=== PATIENT | male | born 1975 | race Caucasian/White ===

== ENCOUNTER 2019-10-13 07:34 | Outpatient (CLI) | payer OTHER ==
[2019-10-13 15:48] LABS: #Basophils 0.1 thou/uL (0.0-0.2); #Eosinphils 0.4 thou/uL (0.0-0.7); #Lymphocytes 1.8 thou/uL (1.20-3.40); #Monocytes 0.7 thou/uL (0.11-0.59); #Neutrophils 5.8 thou/uL (1.40-6.50); %Eosinophils 4.8 % (0.0-10.0); %Lymphocytes 20.6 % (21.0-51.0); %Monocytes 8.1 % (0.0-10.0); %Neutrophils 65.5 % (42.0-75.0); Hemoglobin 15.7 g/dL (14.0-18.0); Mean Corpuscular HGB CONC 34.1 g/dL (32.0-36.0); Mean Corpuscular Hemoglobin 34.3 pg (27.0-31.0); Mean Platelet Volume 8.1 fL (7.4-10.4); Platelet Count 232 thou/uL (130-400); RBC Distribution Width 12.1 % (11.5-14.5); Red Blood Cell (RBC) Count 4.57 mill/uL (4.70-6.10); White Blood Cell (WBC) Count 8.8 thou/uL (4.8-10.8)
[2019-10-13 16:11] LABS: Anion Gap 13 mmol/L (10-20); BUN (Urea Nitrogen) 10 mg/dL (8.9-20.6); Calc. Creatinine Clearance 0 mL/min (70-130); Calcium 9.6 mg/dL (7.8-10.44); Carbon Dioxide 28 mmol/L (22-29); Chloride 99 mmol/L (98-107); Estimated GFR-MDRD Greater than 90; Glucose 79 mg/dL (70-105); Potassium 4.2 mmol/L (3.5-5.1); Sodium 136 mmol/L (136-145)
[2019-10-14 16:49] LABS: SARS-CoV-2 MS2 Positive; SARS-CoV-2 N Gene Negative; SARS-CoV-2 S Gene Negative; SARS-CoV-2 orf1ab Negative
== END 2019-10-13 07:35 | disposition home or self-care (01) ==
LOC: LABBT 07:34
PROVIDERS: ATTEND Specialist
DX: Z01.812 Encounter for preprocedural laboratory examination (principal); Z11.59 Encounter for screening for other viral diseases; K43.9 Ventral hernia without obstruction or gangrene
CPT/HCPCS: 80048; 85025; 87635; U0003

== ENCOUNTER 2019-10-16 10:02 | Day surgery (SDC) | payer OTHER ==
[2019-10-13 13:50] VITALS: BMI 34.9
[2019-10-16] MEDS ORDERED: Ketorolac Tromethamine 30 MG/ML VIAL ONE (10:39)
[2019-10-16] MEDS ORDERED: Acetaminophen 500 MG TAB ONE (10:39)
[2019-10-16] MEDS ORDERED: Fentanyl 250 MCG/5 ML VIAL ONE (12:01)
[2019-10-16] MEDS ORDERED: Bupivacaine 0.25% HCL 30 ML VIAL ONE (12:31)
[2019-10-16] MEDS ORDERED: Lidocaine 1% w/Epinephrine 1:100K 20 ML VIAL ONE (12:31)
[2019-10-16] MEDS ORDERED: Glycopyrrolate 0.2 MG/ML 5 ML SYRINGE ONE (13:37)
[2019-10-16] MEDS ORDERED: Rocuronium Bromide 10 MG/ML (10ML VIAL) ONE (13:37)
[2019-10-16] MEDS ORDERED: EPHEDRINE 25 MG/5 ML SYRINGE ONE (13:37)
[2019-10-16] MEDS ORDERED: Lidocaine 1% PF 5 ML VIAL ONE (13:37)
[2019-10-16] MEDS ORDERED: PROPOFOL 200 MG/20 ML VIAL ONE (13:37)
[2019-10-16] MEDS ORDERED: Dexamethasone 20 MG/5 ML VIAL ONE (13:37)
[2019-10-16] MEDS ORDERED: Ondansetron PF 4 MG/2 ML Vial ONE (13:37)
--- NOTE | 2019-10-17 09:56 | OP ---
DATE OF PROCEDURE: 10/16/2019 PREOPERATIVE DIAGNOSES: Wide supraumbilical diastasis recti, ventral abdominal hernia in the central portion of this diastasis. POSTOPERATIVE DIAGNOSES: Wide supraumbilical diastasis recti, ventral abdominal hernia in the central portion of this diastasis. PROCEDURE PERFORMED: Robotic-assisted repair of ventral hernia, repair and plication of diastasis with placement of an 8 x 11 cm Ventralex mesh patch. ANESTHESIA: General endotracheal. INDICATIONS: The patient is a 44-year-old white male. He is obese. He has visible bulging hernia, supraumbilical. He also has a wide area of diastasis recti in this area. He is taken to the operating room for repair of both processes. DESCRIPTION OF OPERATION: Informed consent was obtained. The patient was taken to the operating room, where general endotracheal anesthesia was obtained with the patient in supine position. Abdomen was prepped with ChloraPrep and draped in sterile fashion. Peng catheter was placed. Local anesthetic was infiltrated. An 11-mm infraumbilical incision was created through which Veress needle was passed in the peritoneal cavity and pneumoperitoneum was established using carbon dioxide up to pressure of 15 mmHg. An 11-mm balloon-tipped trocar port was passed into the abdominal cavity. Robotic camera passed this port. Under direct vision, I placed two additional 8-mm robotic ports at the infraumbilical level bilaterally. The patient was placed into mild Trendelenburg position. The robot was docked to the 3 ports and the camera and the operation was continued from the robotic console. Instruments were placed and attention was turned superiorly. There were some adhesions in the right lower quadrant from the prior appendectomy and these had been mobilized before placing the ports. There was incarcerated material up within the ventral hernia. Examination revealed that all the tissue entering this was omentum. It was, however, scarred in place. I lysed the adhesions around this and was able to fully reduce the hernia contents. The defect was about 3 cm in diameter, however, the hernia sac extended well up into the subcutaneous tissue and was fairly large. A #1 nonabsorbable V-Loc suture was obtained and the defect was closed transversely in a to and fro fashion, obtaining bites of the hernia sac to try and minimize the space. Attention was then turned to the diastasis. Not mentioned earlier is that I cleared the entire preperitoneal space from well below the hernia, proximally down to the level of the umbilicus. This dissection was carried up to just about the xiphoid. The entire falciform ligament was mobilized as well. The diastasis was plicated in 2 layers using another running suture of #1 V-Loc nonabsorbable. The first layer extended from superior to inferior. The second layer using the same suture extended from inferior to superior. The diastasis appeared to be well plicated following this. The pressure was of course dropped in the abdomen as this was performed. An 8 x 11 cm mesh patch was obtained and passed into the abdominal cavity. It was held in place with 2 sutures from the prior suture that had been used. The external edges were securely sutured to the anterior abdominal wall fascia with a running suture of 2-0 absorbable Stratafix. The mesh was well approximated. I placed two sutures in the center to affix it to the underlying fascia as well. The fascia at the 11-mm port site was closed with 0 Vicryl suture using a GraNee needle. All ports and instruments were removed under direct vision. Pneumoperitoneum was carefully evacuated. A 0.25% Marcaine with epinephrine was infiltrated through each port site. Skin edges were approximated with 4-0 Monocryl subcuticular suture. Dermabond was placed externally. There were no complications. The patient tolerated the procedure well. An abdominal binder was placed in the case. The patient was taken to the recovery room in stable condition. Job ID: [id number]
== END 2019-10-16 17:45 | disposition home or self-care (01) ==
LOC: SDC 10:02
PROVIDERS: ATTEND Specialist
PROC: 0WUF4JZ Supplement Abdominal Wall with Synthetic Substitute, Percutaneous Endoscopic Approach (ICD-10-PCS; principal; 2019-10-16)
DX: K43.9 Ventral hernia without obstruction or gangrene (principal); E66.9 Obesity, unspecified; Z68.35 Body mass index [BMI] 35.0-35.9, adult
CPT/HCPCS: C1781; J0690; J1100; J1885; J2001; J2405; J2704; J3010; S0020

== ENCOUNTER 2020-08-07 12:16 | Outpatient (CLI) | payer OTHER ==
[2020-08-07 14:00] LABS: #Basophils 0.1 10x3/uL (0.0-0.2); #Eosinphils 0.4 10x3/uL (0.0-0.5); #Monocytes 0.8 10x3/uL (0.0-1.1); #Neutrophils 6.5 10x3/uL (1.5-8.4); %Basophils 0.5 % (0.0-2.0); %Eosinophils 4.1 % (0.0-6.0); %Monocytes 8.5 % (0.0-10.0); %Neutrophils 67.4 % (40.0-75.0); Hemoglobin 14.6 g/dL (13.5-17.5); Mean Corpuscular HGB CONC 34.6 g/dL (32.0-36.0); Mean Corpuscular Hemoglobin 33.3 pg (27.0-33.0); Mean Corpuscular Volume 96.3 fl (81.2-95.1); Mean Platelet Volume 10.4 fl (7.4-10.4); Platelet Count 218 10x3/uL (150-450); RBC Distribution Width 13.1 % (11.5-14.5); Red Blood Cell (RBC) Count 4.38 10x6/uL (4.32-5.72); White Blood Cell (WBC) Count 9.7 10x3/uL (3.5-10.5)
[2020-08-07 14:34] LABS: Anion Gap 12 mmol/L (10-20); BUN (Urea Nitrogen) 12 mg/dL (8.9-20.6); Calc. Creatinine Clearance 0 mL/min (70-130); Calcium 9.1 mg/dL (7.8-10.44); Carbon Dioxide 29 mmol/L (22-29); Chloride 101 mmol/L (98-107); Glucose 94 mg/dL (70-105); Potassium 4.3 mmol/L (3.5-5.1); Sodium 138 mmol/L (136-145)
[2020-08-08 02:31] LABS: SARS-CoV-2 PCR by NAA Not Detected (NotDetected)
== END 2020-08-07 12:17 | disposition home or self-care (01) ==
LOC: LABBT 12:16
PROVIDERS: ATTEND Specialist
DX: Z01.812 Encounter for preprocedural laboratory examination (principal); K43.9 Ventral hernia without obstruction or gangrene; Z20.822 Contact with and (suspected) exposure to COVID-19
CPT/HCPCS: 80048; 85025; 87635; 93005; 93010; U0003; U0005

== ENCOUNTER 2020-08-12 10:04 | Day surgery (SDC) | payer OTHER ==
[2020-08-08 14:47] VITALS: BMI 35.4
[2020-08-12] MEDS ORDERED: Acetaminophen 500 MG TAB ONE (10:26)
[2020-08-12] MEDS ORDERED: Ketorolac Tromethamine 30 MG/ML VIAL ONE (10:26)
[2020-08-12] MEDS ORDERED: Fentanyl 100 MCG/2 ML VIAL ONE (11:52)
[2020-08-12] MEDS ORDERED: Midazolam HCl 2 mg/2 ml Vial ONE (11:52)
[2020-08-12] MEDS ORDERED: Lidocaine 1% w/Epinephrine 1:100K 20 ML VIAL ONE (12:15)
[2020-08-12] MEDS ORDERED: Bupivacaine 0.25% HCL 30 ML VIAL ONE (12:15)
[2020-08-12] MEDS ORDERED: Dexamethasone 20 MG/5 ML VIAL ONE (12:51)
[2020-08-12] MEDS ORDERED: PROPOFOL 200 MG/20 ML VIAL ONE (12:51)
[2020-08-12] MEDS ORDERED: Rocuronium Bromide 10 MG/ML (10ML VIAL) ONE (12:51)
[2020-08-12] MEDS ORDERED: ePHEDrine 50 MG/ML VIAL ONE (12:51)
[2020-08-12] MEDS ORDERED: Ondansetron PF 4 MG/2 ML Vial ONE (12:51)
[2020-08-12] MEDS ORDERED: Lidocaine 1% PF 5 ML VIAL ONE (12:51)
[2020-08-12] MEDS ORDERED: Glycopyrrolate 0.2 MG/ML 5 ML SYRINGE ONE (12:51)
== END 2020-08-12 16:17 | disposition home or self-care (01) ==
LOC: SDC 10:04
PROVIDERS: ATTEND Specialist
PROC: 0WUF4JZ Supplement Abdominal Wall with Synthetic Substitute, Percutaneous Endoscopic Approach (ICD-10-PCS; principal; 2020-08-12)
DX: K43.2 Incisional hernia without obstruction or gangrene (principal); M10.9 Gout, unspecified; F17.210 Nicotine dependence, cigarettes, uncomplicated; E66.01 Morbid (severe) obesity due to excess calories; Z68.35 Body mass index [BMI] 35.0-35.9, adult; Z79.899 Other long term (current) drug therapy
CPT/HCPCS: J0690; J1100; J1885; J2250; J2405; J2704; J3010; J3490; S0020

== ENCOUNTER 2021-09-29 14:32 | Outpatient (CLI) | payer OTHER ==
[2021-09-29] MEDS ORDERED: ISOVUE-370 76% 1 ML ONE (15:03)
== END 2021-09-29 14:33 | disposition home or self-care (01) ==
LOC: BICCT 14:32
PROVIDERS: ATTEND Nurse Practitioner Family
DX: R91.1 Solitary pulmonary nodule (principal); K76.9 Liver disease, unspecified; M89.9 Disorder of bone, unspecified
CPT/HCPCS: 71250; 74178

== ENCOUNTER 2022-05-07 12:47 | Outpatient (CLI) | payer OTHER | END 2022-05-07 12:48 | disposition home or self-care (01) | LOC: BICCT 12:47 | PROVIDERS: ATTEND Internal Medicine Critical Care Medicine | DX: R91.8 Other nonspecific abnormal finding of lung field (principal) | CPT/HCPCS: 71250 ==

== ENCOUNTER 2023-04-13 12:17 | Outpatient (CLI) | payer OTHER ==
[~2023-04-13 12:17] MED LIST: Iopamidol 370 76% 100 ML VIAL ONE
== END 2023-04-13 12:18 | disposition home or self-care (01) ==
LOC: BICCT 12:17
PROVIDERS: ATTEND Internal Medicine Critical Care Medicine
DX: R91.8 Other nonspecific abnormal finding of lung field (principal)
CPT/HCPCS: 71260; 82565; Q9967

== ENCOUNTER 2024-04-13 12:47 | Outpatient (CLI) | payer OTHER | END 2024-04-13 12:48 | disposition home or self-care (01) | LOC: BICCT 12:47 | PROVIDERS: ATTEND Internal Medicine Critical Care Medicine | DX: R91.1 Solitary pulmonary nodule (principal); R91.8 Other nonspecific abnormal finding of lung field | CPT/HCPCS: 36415; 71260; 82565 ==